=== PATIENT | female | born 1985 | race African-American/Black ===

== ENCOUNTER 2016-10-23 09:45 | Emergency (ER) | payer SELFPAY ==
[2016-10-23 09:53] VITALS: BP 166/89
--- NOTE | 2016-10-23 10:06 | ED Physician Documentation ---
Upper Respiratory Symptoms - HISTORIAN Historian: patient - HPI Stated Complaint: Sore Throat Chief Complaint: Upper Respiratory Symptoms Onset: days ago Associated Symptoms: fever, chills, earache (left), runny nose, sinus drainage, sore throat. denies: sinus pain, bloody cough, productive cough, shortness of breath Further Comments: yes (31 year old female patient presents with sore throat and left ear pain for the past 2 days.) - ROS CONST/EYES: denies: weakness, eye redness, eye itching, other CVS/RESP: none LYMPH: denies: leg swelling, rash, swollen glands, ankle swelling, other GI/: none NEURO/PSYCH: denies: fainting, dizziness, confusion, anxiety, depression, other MS/SKIN: denies: joint pain, muscle aches, rash, other - PAST HX Lung Disease: none Allergies/Adverse Reactions: Allergies Allergy/AdvReac Type Severity Reaction Status Date / Time No Known Drug Allergies Allergy Verified 10/23/16 09:53 Home Medications: Ambulatory Orders Medication Instructions Recorded Control 1 tab PO DAILY 04/14/14 Amoxicillin [Amoxil] 500 mg PO TID #30 capsule 10/23/16 - SOCIAL HX Smoking History: non-smoker - FAMILY HX Family History: no significant history - VITAL SIGNS Vital Signs: Vital Signs Temp Pulse Resp BP Pulse Ox 69 18 166/89 98 10/23/16 09:45 10/23/16 09:45 10/23/16 09:45 10/23/16 09:45 - REVIEWED ASSESSMENTS Nursing Assessment Reviewed: Yes Vitals Reviewed: Yes ED Results Lab/Radiology - Orders Orders: ED Orders Category Date Time Status Strep [GRP A STREP SCREEN] Stat Lab 10/23/16 09:51 Ordered Upper Respiratory Symptoms - EXAM General Appearance: no acute distress, alert EENT: eyes nml inspection, lids & conjunct. nml, PERRL, ear nml, nose nml, airway nml, pharyngeal erythema, tonsillar exudate (left) Respiratory: no resp. distress, breath sounds nml, no pain on inspiration, speaks full sentences, no pleuritic chest pain Abdomen: non-tender, no organomegaly, nml bowel sounds, no distention CVS: reg rate & rhythm, heart sounds normal, equal pulses, no murmur, no gallop , PMI nml, no JVD, no friction rub, 24 Skin: color nml, no rash, warm,dry Neuro/Psych: oriented x3, neuro intact, mood/affect nml, CN's nml as tested Discharge Clincal Impression: Strep pharyngitis Prescriptions: Amoxicillin [Amoxil] 500 mg PO TID #30 capsule Referrals: Primary Doctor,No [Primary Care Provider] - 2 Days Home Medications: Ambulatory Orders Control 1 tab PO DAILY 04/14/14 Amoxicillin [Amoxil] 500 mg PO TID #30 capsule 10/23/16 Condition: Stable Disposition: 01 HOME, SELF-CARE Decision to Admit: NO Decision Time: 10:15
== END 2016-10-23 10:30 | disposition home or self-care (01) ==
LOC: ED 09:45
DX: J02.0 Streptococcal pharyngitis (principal)
CPT/HCPCS: 87880; 99283

== ENCOUNTER 2017-05-04 19:22 | Emergency (ER) | payer SELFPAY ==
[2017-05-04 19:37] VITALS: BP 153/90
[2017-05-04] MEDS: AZITHROMYCIN 250 MG TABLET PO ONE (19:52)
--- NOTE | 2017-05-04 19:55 | ED Physician Documentation ---
General Adult - HISTORIAN Historian: patient - HPI Stated Complaint: L EAR PAIN Chief Complaint: General Adult Onset: days ago Timing: worse Further Comments: yes (31 year old female patient presents with complaint of bilateral ear ache x 7 days with headache. Denies fever, cough or SOB.) - ROS CONST: no problems EYES/ENT: nasal drainage, nasal congestion. denies: problems with vision, sore throat CVS/RESP: none GI/: none MS/SKIN/LYMPH: none NEURO/PSYCH: headache, other. denies: fainting, dizziness, tingling, numbness, difficulty walking, difficulty with speech, anxiety, depression - PAST HX Past History: none Allergies/Adverse Reactions: Allergies Allergy/AdvReac Type Severity Reaction Status Date / Time No Known Drug Allergies Allergy Verified 05/04/17 19:37 Home Medications: Ambulatory Orders Medication Instructions Recorded Azithromycin [Zithromax] 250 mg PO DAILY #4 tablet 05/04/17 Norgestimate-Ethinyl Estradiol 1 each PO DAILY 05/04/17 [Tri-Sprintec] - SOCIAL HX Smoking History: non-smoker - FAMILY HX Family History: No - VITAL SIGNS Vital Signs: Vital Signs Temp Pulse Resp BP Pulse Ox 98.6 F 74 16 153/90 100 05/04/17 19:22 05/04/17 19:22 05/04/17 19:22 05/04/17 19:22 05/04/17 19:22 - REVIEWED ASSESSMENTS Nursing Assessment Reviewed: Yes Vitals Reviewed: Yes ED Results Lab/Radiology - Orders Orders: ED Orders Category Date Time Status Azithromycin [Zithromax] Med 05/04/17 19:50 Discontinued 500 mg PO NOW ONE General Adult Physical Exam - PHYSICAL EXAM GENERAL APPEARANCE: mild distress EENT: eye inspection normal, pharynx normal, no signs of dehydration, LAUREN, no nystagmus, TM erythema (serous effusion noted in left ear) RESPIRATORY: no resp distress, chest non-tender, breath sounds normal CVS: reg rate & rhythm, heart sounds normal, equal pulses, no murmur, no gallop , PMI nml, no JVD, no friction rub, 24 ABDOMEN: soft, no organomegaly, normal bowel sounds, no abdominal bruit, no distension SKIN: normal color, warm/dry, NR, INT, PAL, NEURO: oriented X3, CN's nml as tested, motor nml, sensation nml, mood/affect nml Discharge Clincal Impression: Otitis media Qualifiers: Otitis media type: serous Chronicity: acute Laterality: bilateral Recurrence: not specified as recurrent Qualified Code(s): H65.03 - Acute serous otitis media , bilateral Sinusitis Qualifiers: Sinusitis location: maxillary Chronicity: acute Recurrence: non-recurrent Qualified Code(s): J01.00 - Acute maxillary sinusitis, unspecified Prescriptions: Azithromycin [Zithromax] 250 mg PO DAILY #4 tablet Additional Instructions: [employer] an over the counter decongestant such as pseudoped, dayquil and Nyquil at your pharmacy. Treat your symptoms with over the counter medication. You may want to try Vicks rub on your chest and/or feet Cough drops as needed for cough and sore throat. Increase your fluid intake juices, hot tea, non-caffeinated beverages Use a humidifier in the room where you sleep. You can also sit in a steam filled bathroom 1-2 times a day. Tylenol or Ibuprofen as needed for fever, pain and body aches Home Medications: Ambulatory Orders Azithromycin [Zithromax] 250 mg PO DAILY #4 tablet 05/04/17 Norgestimate-Ethinyl Estradiol [Tri-Sprintec] 1 each PO DAILY 05/04/17 Condition: Stable Disposition: 01 HOME, SELF-CARE Decision to Admit: NO Decision Time: 19:54
== END 2017-05-04 19:57 | disposition home or self-care (01) ==
LOC: ED 19:22
DX: H65.03 Acute serous otitis media, bilateral (principal); J01.00 Acute maxillary sinusitis, unspecified
CPT/HCPCS: 99283

== ENCOUNTER 2017-08-06 16:51 | Outpatient (CLI) | payer SELFPAY | END 2017-08-06 16:52 | LOC: LABRHC 16:51 | PROVIDERS: ATTEND Physician Assistant | DX: R35.0 Frequency of micturition (principal) | CPT/HCPCS: 87086 ==